=== PATIENT | female | born 1960 | race Caucasian/White ===

== ENCOUNTER 2017-07-29 11:29 | Emergency (ER) | payer OTHER ==
[~2017-07-29] VITALS: Ht 160 cm; Wt 79.5 kg
[2017-07-29 11:30] VITALS: BP 124/61; PULSE 90; RESP 18; TEMP 98.5; O2SAT 97
[2017-07-29] MEDS ORDERED: SODIUM CHLOR 0.9% 1000 ML INJ 1,000 ML IV ONE ×2 (11:53→13:45)
[2017-07-29] MEDS ORDERED: TRAZ300T2 PO (11:57)
[2017-07-29] MEDS ORDERED: OMEGCAP PO (11:57)
[2017-07-29] MEDS ORDERED: GLIP5TAB8 PO (11:57)
[2017-07-29] MEDS ORDERED: METF1000 PO (11:57)
[2017-07-29] MEDS ORDERED: ALLO300T2 PO (11:57)
[2017-07-29] MEDS ORDERED: ERYT250T13 PO (11:57)
[2017-07-29] MEDS ORDERED: LISI10TA3 PO (11:57)
[2017-07-29] MEDS ORDERED: OXYB10TA PO (11:57)
--- NOTE | 2017-07-29 12:01 | PD ---
HPI Chief Complaint: Dizziness Time Seen by Provider: 11:43 Travel History International Travel<30 days: No Contact w/Intl Traveler<30days: No Traveled to known affect area: No History of Present Illness HPI 56-year-old female with a history of diabetes with gastroparesis presents emergency department with lightheadedness and nausea associated with food for 2- 3 days. Says she has developed these symptoms over the last few days. In addition, she has had occasional cough and cold-like symptoms. Patient denies fevers, chest pain, shortness of breath, vomiting, back pain. Says she has chronic loose stools and has had diarrhea 5 times today, but says that she normally has loose stools and this may not be completely abnormal for her. Denies hematemesis, hematochezia, melena. Says her blood sugars have been running in the 120s which is normal for her. Her surgical history is significant significant for gastric sleeve 2 years ago, cholecystectomy, partial hysterectomy, and recent "hernia surgery" May 12, 2017. She has had a recent medication change to 2500mg metformin daily. Denies cardiac or pulmonary issues. She does not smoke. Her PCP is Dr. Cortez. [facility] Past Medical History Diabetes: Yes Patient Takes Glucophage: Yes Diminished Hearing: No Tetanus Vaccination: < 5 Years ?: Not Past Surgical History Cholecystectomy: Yes Hysterectomy: Yes Other Surgery: Yes (GASTRIC BYPASS, CARPAL TUNNEL, HERNIA) Social History Alcohol Use: No Tobacco Use: No Substance Use: No Allergies-Medications (Allergen,Severity, Reaction): Coded Allergies: aspirin (Verified Allergy, Unknown, 07/29/17) morphine (Verified Allergy, Unknown, Nausea/Vomiting, 07/29/17) Reported Meds & Prescriptions Reported Meds & Active Scripts Active Zofran (Ondansetron HCl) 4 Mg Tab 4 Mg PO Q8HR PRN 5 Days Reported Glipizide 5 Mg Tab 5 Mg PO DAILY Take 30 minutes before a meal Erythromycin Base 250 Mg Tab 250 Mg PO QID Lisinopril 10 Mg Tab 10 Mg PO DAILY Oxybutynin ER 24 HR (Oxybutynin Chloride) 10 Mg Tab 10 Mg PO DAILY [place]-3 Fish Oil/Vitamin (Fish Oil-Cholecalciferol) 1,000-1,000 Mg Cap 1 Cap PO DAILY Trazodone (Trazodone HCl) 300 Mg Tab 300 Mg PO HS Allopurinol 300 Mg Tab 300 Mg PO DAILY Metformin (Metformin HCl) 1,000 Mg Tab 2,500 Mg PO DAILY With a meal Review of Systems Except as stated in HPI: all other systems reviewed are Neg Physical Exam Narrative GENERAL: Well-developed, well-nourished resting comfortably in bed in no acute distress SKIN: Focused skin assessment warm/dry. Multiple scars of her abdomen HEAD: Atraumatic. Normocephalic. EYES: Pupils equal and round. No scleral icterus. No injection or drainage. EOMI ENT: No nasal bleeding or discharge. Mucous membranes pink and moist. NECK: Trachea midline. No JVD. No lymphadenopathy CARDIOVASCULAR: Regular rate and rhythm. No murmur appreciated. RESPIRATORY: No accessory muscle use. Clear to auscultation. Breath sounds equal bilaterally. GASTROINTESTINAL: Abdomen soft, non-tender, nondistended. Normoactive bowel sounds, tympany to percussion MUSCULOSKELETAL: No obvious deformities. No clubbing. No cyanosis. No edema. Homans sign negative bilaterally NEUROLOGICAL: Awake and alert. No obvious cranial nerve deficits. Motor grossly within normal limits. Normal speech. PSYCHIATRIC: Appropriate mood and affect; insight and judgment normal. Data Data Last Documented VS Vital Signs Date Time Temp Pulse Resp B/P (MAP) Pulse Ox O2 Delivery O2 Flow Rate FiO2 07/29/17 12:55 75 16 107/56 (73) 74 17 109/57 (74) 82 17 96/55 (69) 07/29/17 11:30 98.5 97 Room Air Orders Orders Electrocardiogram (07/29/17 11:53) Complete Blood Count With Diff (07/29/17 11:53) Comprehensive Metabolic Panel (07/29/17 11:53) Troponin I (07/29/17 11:53) Act Partial Throm Time (Ptt) (07/29/17 11:53) Prothrombin Time / Inr (Pt) (07/29/17 11:53) Urinalysis - C+S If Indicated (07/29/17 11:53) Blood Glucose (07/29/17 11:53) Ecg Monitoring (07/29/17 11:53) Iv Access Insert/Monitor (07/29/17 11:53) Oximetry (07/29/17 11:53) Sodium Chlor 0.9% 1000 Ml Inj (Ns 1000 M (07/29/17 11:53) Orthostatic Vital Signs (07/29/17 11:53) Sodium Chlor 0.9% 1000 Ml Inj (Ns 1000 M (07/29/17 13:45) Influenzae A/B Antigen (07/29/17 14:11) Ondansetron Inj (Zofran Inj) (07/29/17 14:15) Chest, Single Ap (07/29/17 ) Ed Discharge Order (07/29/17 15:48) Labs Laboratory Tests Test 07/29/17 12:20 07/29/17 13:42 White Blood Count 7.9 TH/MM3 Red Blood Count 4.53 MIL/MM3 Hemoglobin 14.1 GM/DL Hematocrit 41.0 % Mean Corpuscular Volume 90.4 FL Mean Corpuscular Hemoglobin 31.0 PG Mean Corpuscular Hemoglobin Concent 34.3 % Red Cell Distribution Width 13.5 % Platelet Count 198 TH/MM3 Mean Platelet Volume 8.0 FL Neutrophils (%) (Auto) 41.2 % Lymphocytes (%) (Auto) 49.3 % Monocytes (%) (Auto) 5.1 % Eosinophils (%) (Auto) 4.1 % Basophils (%) (Auto) 0.3 % Neutrophils # (Auto) 3.3 TH/MM3 Lymphocytes # (Auto) 3.9 TH/MM3 Monocytes # (Auto) 0.4 TH/MM3 Eosinophils # (Auto) 0.3 TH/MM3 Basophils # (Auto) 0.0 TH/MM3 CBC Comment DIFF FINAL Differential Comment Prothrombin Time 10.7 SEC Prothromb Time International Ratio 1.1 RATIO Activated Partial Thromboplast Time 25.4 SEC Blood Urea Nitrogen 11 MG/DL Creatinine 0.81 MG/DL Random Glucose 123 MG/DL Total Protein 7.9 GM/DL Albumin 4.2 GM/DL Calcium Level 9.5 MG/DL Alkaline Phosphatase 36 U/L Aspartate Amino Transf (AST/SGOT) 65 U/L Alanine Aminotransferase (ALT/SGPT) 118 U/L Total Bilirubin 0.4 MG/DL Sodium Level 138 MEQ/L Potassium Level 4.2 MEQ/L Chloride Level 104 MEQ/L Carbon Dioxide Level 26.3 MEQ/L Anion Gap 8 MEQ/L Estimat Glomerular Filtration Rate 73 ML/MIN Troponin I LESS THAN 0.02 NG/ML Urine Color LIGHT-YELLOW Urine Turbidity CLEAR Urine pH 7.0 Urine Specific [place] 1.008 Urine Protein NEG mg/dL Urine Glucose (UA) NEG mg/dL Urine Ketones NEG mg/dL Urine Occult Blood NEG Urine Nitrite NEG Urine Bilirubin NEG Urine Urobilinogen LESS THAN 2.0 MG/DL Urine Leukocyte Esterase MOD Urine RBC LESS THAN 1 /hpf Urine WBC 1 /hpf Urine Squamous Epithelial Cells 1 /hpf Urine Transitional Epithelial Cells <1 /hpf Microscopic Urinalysis Comment CULT NOT INDICATED MDM Medical Decision Making Medical Screen Exam Complete: Yes Emergency Medical Condition: Yes Differential Diagnosis Electrolyte abnormality, dehydration, medication noncompliance, diabetic gastroparesis Narrative Course 56-year-old female with a history of diabetes with gastroparesis presents emergency department complaining of dizziness, nausea, vomiting and diarrhea for 2-3 days. Patient states that her diarrhea is chronic and she has gone about 5 times a day. States that she recently changed her metformin to 2500 mg a day which is up 500 mg from her usual dose. States that her nausea is associated with food. In addition, states that she has lightheadedness with standing up. She denies head trauma, loss of consciousness, syncope or presyncopal episodes. Her vital signs are stable today. Orthostatics mildly positive. Physical exam findings essentially unremarkable. Zofran administered for nausea. EKG demonstrates sinus rhythm with first-degree heart block with DE interval 0.229. CBC & BMP Diagram 07/29/17 12:20 Total Protein 7.9, Albumin 4.2, Calcium Level 9.5, Alkaline Phosphatase 36 L, Aspartate Amino Transf (AST/SGOT) 65 H, Alanine Aminotransferase (ALT/SGPT) 118 H, Total Bilirubin 0.4 After discussion of the liver enzymes, patient states that she does have a "fatty liver". She is unsure of her baseline numbers. Influenza negative. UA unremarkable. Cardiac enzymes negative Advised patient to follow-up with primary care physician for further evaluation. Advised to follow-up with her elevated liver enzymes. History and physical follow pattern of orthostasis or dehydration. I advised her to follow- up with primary care physician for discussion of metformin. Patient does have gastroparesis and takes erythromycin. It is likely that she has had more than normal episodes of diarrhea that has caused some dehydration. She states understanding and will comply. Diagnosis Primary Impression: Nausea & vomiting Qualified Codes: R11.2 - Nausea with vomiting, unspecified Additional Impressions: Dehydration Elevated liver enzymes Referrals: Primary Care Physician Additional Instructions: Take all medications as prescribed. Consider changing dose of metformin as you may have a slight intolerance to this medication at 2500 mg. Follow up with your primary care physician this week. Use caution with standing to avoid dizziness. Scripts Ondansetron (Zofran) 4 Mg Tab 4 MG PO Q8HR Y for NAUSEA OR VOMITING for 5 Days, TAB 0 Refills Prov: Tori Luna 07/29/17 Disposition: 01 DISCHARGE HOME Condition: Stable Tori Luna Jul 29, 2017 12:01
[2017-07-29 12:51] LABS: AUTOMATED NEUTROPHIL # 3.3 TH/MM3 (1.8-7.7); BASOPHIL % 0.3 % (0.0-2.0); EOSINOPHIL # 0.3 TH/MM3 (0-0.4); EOSINOPHIL % 4.1 % (0.0-4.0); HEMOGLOBIN 14.1 GM/DL (11.6-15.3); LYMPH % 49.3 % (9.0-44.0); LYMPHOCYTE # 3.9 TH/MM3 (1.0-4.8); MEAN CELL VOLUME 90.4 FL (80.0-100.0); MEAN CORPUSCULAR HGB CONC 34.3 % (32.0-36.0); MONO % 5.1 % (0.0-8.0); MONOCYTE # 0.4 TH/MM3 (0-0.9); NEUT % 41.2 % (16.0-70.0); PLATELET COUNT 198 TH/MM3 (150-450); RED BLOOD COUNT 4.53 MIL/MM3 (4.00-5.30); RED CELL DISTRIBUTION WIDTH 13.5 % (11.6-17.2); WHITE BLOOD COUNT 7.9 TH/MM3 (4.0-11.0)
[2017-07-29 12:55] VITALS: BP_SYST 107; BP_SYST 109; BP_SYST 96; BP_DIAS 55; BP_DIAS 56; BP_DIAS 57; RESP 16; RESP 17
[2017-07-29 13:03] LABS: INTERNATIONAL NORMALIZED RATIO 1.1 RATIO; PROTHROMBIN TIME - PATIENT 10.7 SEC (9.8-11.6)
[2017-07-29 13:16] LABS: ALBUMIN 4.2 GM/DL (3.4-5.0); ALT (GPT) 118 U/L (10-53); AST (GOT) 65 U/L (15-37); BICARBONATE 26.3 MEQ/L (21.0-32.0); BLOOD UREA NITROGEN 11 MG/DL (7-18); CALCIUM 9.5 MG/DL (8.5-10.1); CHLORIDE 104 MEQ/L (98-107); CREATININE 0.81 MG/DL (0.50-1.00); GLOMERULAR FILTRATION RATE 73 ML/MIN (>89); GLUCOSE,RANDOM 123 MG/DL (74-106); SODIUM (NA) 138 MEQ/L (136-145)
[2017-07-29 13:20] LABS: ALKALINE PHOSPHATASE 36 U/L (45-117); TOTAL BILIRUBIN ADULT 0.4 MG/DL (0.2-1.0); TOTAL PROTEIN 7.9 GM/DL (6.4-8.2); TROPONIN I LESS THAN 0.02 NG/ML (0.02-0.05)
[2017-07-29 14:11] LABS: BILIRUBIN, URINE NEG (NEG); BLOOD, URINE NEG (NEG); GLUCOSE,URINE NEG (NEG); KETONE, URINE NEG (NEG); NITRITE,URINE NEG (NEG); SQUAMOUS EPITHELIAL CELL URINE 1 /hpf (0-5); TRANSITIONAL EPI CELLS, URINE <1 /hpf; URINE COLOR LIGHT-YELLOW (YELLW/STRAW); URINE LEUKOCYTE ESTERASE MOD (NEG)
[2017-07-29] MEDS ORDERED: ONDANSETRON HCL 4 MG/2 ML VIAL IV PUSH ONE (14:15)
--- NOTE | 2017-07-29 15:03 | RADRPT ---
EXAM DATE/TIME: 07/29/2017 14:25 [facility] COMPARISON: No previous studies available for comparison. INDICATIONS : Dizziness for 3 days. MEDICAL HISTORY : Diabetes mellitus type II. SURGICAL HISTORY : None. ENCOUNTER: Initial ACUITY: 3 days PAIN SCORE: 0/10 LOCATION: Bilateral chest FINDINGS: A single view of the chest demonstrates the lungs to be symmetrically aerated without evidence of mas s, infiltrate or effusion. The cardiomediastinal contours are unremarkable. Osseous structures are intact. CONCLUSION: The lungs are clear. Roe Robles MD on July 29, 2017 at 15:02 Board Certified Radiologist. This report was verified electronically.
[2017-07-29] MEDS ORDERED: ZOFR4TAB PO (15:46)
--- NOTE | 2017-07-30 16:04 | EKG ---
Date Performed: 07/29/2017 Time Performed: 11:46:28 PTAGE: 56 years EKG: Sinus rhythm WITH FIRST DEGREE AV BLOCK POSSIBLE LEFT ATRIAL ENLARGEMENT LOW QRS VOLTAGE IN PRECORDIAL LEADS MODE RATE ST DEPRESSION ABNORMAL ECG NO PREVIOUS TRACING DOCTOR: Alexander Driscoll Interpretating Date/Time 07/30/2017 16:03:14
== END 2017-07-29 16:19 | disposition home or self-care (01) ==
LOC: NEPC 11:29
DX: E11.43 Type 2 diabetes mellitus with diabetic autonomic (poly)neuropathy (principal); K31.84 Gastroparesis; E86.0 Dehydration; R74.8 Abnormal levels of other serum enzymes; R94.31 Abnormal electrocardiogram [ECG] [EKG]; Z79.84 Long term (current) use of oral hypoglycemic drugs
CPT/HCPCS: 71045; 80053; 81001; 84484; 85025; 85610; 85730; 87804; 93005; 96361; 96374; 99285; J2405; J7030

== ENCOUNTER 2017-10-08 19:28 | Emergency (ER) | payer OTHER, MEDICAID ==
[~2017-10-08] VITALS: Ht 162.6 cm; Wt 82.0 kg
[~2017-10-08 19:28] MED LIST: ALLO300T2 PO; ERYT250T13 PO; GLIP5TAB8 PO; LISI10TA3 PO; METF1000 PO; OMEGCAP PO; OXYB10TA PO; TRAZ300T2 PO; ZOFR4TAB PO
[2017-10-08 19:49] VITALS: BP 134/65; PULSE 73; RESP 18; TEMP 98; O2SAT 96
--- NOTE | 2017-10-08 20:12 | PD ---
HPI Chief Complaint: Pain: Acute or Chronic Time Seen by Provider: 20:00 Travel History International Travel<30 days: No Contact w/Intl Traveler<30days: No Traveled to known affect area: No History of Present Illness HPI Patient is a 57-year-old female who comes in complaining of right hip pain. She says it has been going on for the past week. She has not taken anything for pain. She does not recall any injury. She says that movement makes the pain worse. She says the pain is mostly in her hip and she has some numbness in her leg. She says she feels like it shoots down her right leg. She says it has been getting worse over the past few days. Severity is mild to moderate. PFSH Past Medical History Diabetes: Yes Patient Takes Glucophage: No Diminished Hearing: No Immunizations Current: Yes ?: Not Past Surgical History Cholecystectomy: Yes Hysterectomy: Yes Other Surgery: Yes (GASTRIC BYPASS, CARPAL TUNNEL, HERNIA) Social History Alcohol Use: No Tobacco Use: No Substance Use: No Allergies-Medications (Allergen,Severity, Reaction): Coded Allergies: aspirin (Verified Allergy, Unknown, 07/29/17) morphine (Verified Allergy, Unknown, Nausea/Vomiting, 07/29/17) Reported Meds & Prescriptions Reported Meds & Active Scripts Active Zofran (Ondansetron HCl) 4 Mg Tab 4 Mg PO Q8HR PRN 5 Days Reported Glipizide 5 Mg Tab 5 Mg PO DAILY Take 30 minutes before a meal Erythromycin Base 250 Mg Tab 250 Mg PO QID Lisinopril 10 Mg Tab 10 Mg PO DAILY Oxybutynin ER 24 HR (Oxybutynin Chloride) 10 Mg Tab 10 Mg PO DAILY [place]-3 Fish Oil/Vitamin (Fish Oil-Cholecalciferol) 1,000-1,000 Mg Cap 1 Cap PO DAILY Trazodone (Trazodone HCl) 300 Mg Tab 300 Mg PO HS Allopurinol 300 Mg Tab 300 Mg PO DAILY Metformin (Metformin HCl) 1,000 Mg Tab 2,500 Mg PO DAILY With a meal Review of Systems General / Constitutional: No: Fever, Chills HENT: No: Headaches, Lightheadedness Cardiovascular: No: Chest Pain or Discomfort Respiratory: No: Shortness of Breath Gastrointestinal: No: Nausea, Vomiting Genitourinary: No: Dysuria, Flank Pain Musculoskeletal: Positive: Pain, No: Edema Skin: No Rash, No Change in Pigmentation Neurologic: Positive: Paresthesia, No: Weakness, Dizziness Physical Exam Narrative GENERAL: Awake alert, in no acute distress. SKIN: Focused skin assessment warm/dry. No wounds or signs of infection. HEAD: Atraumatic. Normocephalic. EYES: Pupils equal and round. No scleral icterus. ENT: Mucous membranes pink and moist. NECK: Trachea midline. No JVD. CARDIOVASCULAR: Regular rate and rhythm. No murmur appreciated. RESPIRATORY: No accessory muscle use. Clear to auscultation. Breath sounds equal bilaterally. GASTROINTESTINAL: Abdomen soft, non-tender, nondistended. No CVA tenderness. MUSCULOSKELETAL: No obvious deformities. No clubbing. No cyanosis. No edema. Pain with movement in the right side. Mild tenderness to the right sacroiliac area. NEUROLOGICAL: Awake and alert. No obvious cranial nerve deficits. Motor grossly within normal limits. Normal speech. No saddle anesthesia. PSYCHIATRIC: Appropriate mood and affect; insight and judgment normal. Data Data Last Documented VS Vital Signs Date Time Temp Pulse Resp B/P (MAP) Pulse Ox O2 Delivery O2 Flow Rate FiO2 10/08/17 19:49 98.0 73 18 134/65 (88) 96 Orders Orders Hip, Uni(4+Vws) W Ap Pelvis (10/08/17 ) Ketorolac Inj (Toradol Inj) (10/08/17 20:15) Cyclobenzaprine (Flexeril) (10/08/17 20:15) MDM Medical Decision Making Medical Screen Exam Complete: Yes Emergency Medical Condition: Yes Medical Record Reviewed: Yes Differential Diagnosis Hip strain versus sciatica versus fracture Narrative Course Patient is a 57-year-old female comes in complaining of right hip pain. There is tenderness to the right sacroiliac area, pain with movement of her right hip. No saddle anesthesia. X-ray of the hip and pelvis performed show no acute abnormalities. Given Toradol and Flexeril with resolution of her symptoms. She is advised to take ibuprofen as needed at home. Given a prescription for Flexeril. Advised follow-up with her doctor. Advised return to the ED as needed for any worsening symptoms. Diagnosis Primary Impression: Hip pain Qualified Codes: M25.551 - Pain in right hip Additional Impression: Sciatica Qualified Codes: M54.31 - Sciatica, right side Patient Instructions: General Instructions, Lower Back Exercises (ED), Sciatica (ED) Additional Instructions: Take ibuprofen as needed for pain. You can also take Flexeril to help with the pain. Follow-up with your doctor. Return to the ED as needed for any worsening symptoms. Scripts Cyclobenzaprine (Flexeril) 10 Mg Tab 10 MG PO TID for Muscle Spasm, #15 TAB 0 Refills Prov: Celia Del Rosario MD 10/08/17 Disposition: 01 DISCHARGE HOME Condition: Stable Celia Del Rosario MD October 08, 2017 20:12
[2017-10-08] MEDS ORDERED: KETOROLAC TROMETHAMINE 60 MG/2 ML (IM) VIAL IM ONE (20:15)
[2017-10-08] MEDS ORDERED: CYCLOBENZAPRINE HCL 10 MG TAB PO ONE (20:15)
--- NOTE | 2017-10-08 20:35 | RADRPT ---
EXAM DATE/TIME: 10/08/2017 20:20 [facility] COMPARISON: No previous studies available for comparison. INDICATIONS : Patient complains of right hip pain. No known injury. MEDICAL HISTORY : None. SURGICAL HISTORY : None. ENCOUNTER: Initial ACUITY: 1 week PAIN SCORE: 10/10 LOCATION: Right Hip FINDINGS: Examination of the right hip was performed with AP pelvis. The primary and secondary trabecular jass carlos of the femoral neck is intact. The hip joint is of normal width without significant sclerosis or bony hypertrophy. The acetabulum is grossly intact. CONCLUSION: No acute fracture. Modesto Hall MD on October 08, 2017 at 20:33 Board Certified Radiologist. This report was verified electronically.
[2017-10-08] MEDS ORDERED: CYCL10TA PO (21:26)
== END 2017-10-08 21:54 | disposition home or self-care (01) ==
LOC: NEPE 19:28
DX: M25.551 Pain in right hip (principal); M54.31 Sciatica, right side; E11.9 Type 2 diabetes mellitus without complications; Z79.84 Long term (current) use of oral hypoglycemic drugs
CPT/HCPCS: 73503; 96372; 99283; J1885

== ENCOUNTER 2017-10-25 20:06 | Emergency (ER) | payer OTHER, MEDICAID ==
[~2017-10-25 20:06] MED LIST changes: +CYCL10TA PO
[2017-10-25 20:16] VITALS: BP 143/63; PULSE 97; RESP 18; TEMP 98.3; O2SAT 98
[2017-10-25] MEDS ORDERED: TIZA4CAP3 PO (20:38)
[2017-10-25] MEDS ORDERED: LIDO1ADH4 TOPICAL (20:38)
--- NOTE | 2017-10-25 20:38 | PD ---
HPI Chief Complaint: Pain: Acute or Chronic Time Seen by Provider: 20:20 Travel History International Travel<30 days: No Contact w/Intl Traveler<30days: No Traveled to known affect area: No History of Present Illness HPI Patient is a 57-year-old female presenting to the emergency department for evaluation of sciatica. Patient states she was in the emergency department a few weeks ago, the pain feels worse than it did before. Patient has not been taking any medications to alleviate her symptoms. She has not followed up with her primary doctor as suggested. She states the pain runs down her right leg. She denies any bladder or bowel incontinence, no saddle paresthesia, no weakness or numbness. Patient cannot take NSAIDs due to gastric sleeve surgery. Patient is also diabetic. She reports the pain is a 7 out of 10, shooting and aching, worse with certain positions. She states it takes her a minute to be able to walk after she stands up because it grabs. PFSH Past Medical History Diabetes: Yes Medical other: Yes (SCIATICA) Immunizations Current: Yes Past Surgical History Cholecystectomy: Yes Hysterectomy: Yes Other Surgery: Yes (GASTRIC BYPASS, CARPAL TUNNEL, HERNIA) Social History Alcohol Use: No Tobacco Use: No Substance Use: No Allergies-Medications (Allergen,Severity, Reaction): Coded Allergies: aspirin (Verified Allergy, Unknown, 10/25/17) morphine (Verified Allergy, Unknown, Nausea/Vomiting, 10/25/17) Reported Meds & Prescriptions Reported Meds & Active Scripts Active Tizanidine (Tizanidine HCl) 4 Mg Cap 4 Mg PO TID 10 Days Lidoderm (Lidocaine) 5 % Adh..patch 1 Patch TOPICAL DAILY PRN 10 Days Reported Losartan (Losartan Potassium) 25 Mg Tab 10 Mg PO DAILY Glipizide 5 Mg Tab 5 Mg PO DAILY Take 30 minutes before a meal Oxybutynin ER 24 HR (Oxybutynin Chloride) 10 Mg Tab 10 Mg PO DAILY [place]-3 Fish Oil/Vitamin (Fish Oil-Cholecalciferol) 1,000-1,000 Mg Cap 1 Cap PO DAILY Trazodone (Trazodone HCl) 300 Mg Tab 300 Mg PO HS Allopurinol 300 Mg Tab 300 Mg PO DAILY Metformin (Metformin HCl) 1,000 Mg Tab 2,500 Mg PO DAILY With a meal Review of Systems Except as stated in HPI: all other systems reviewed are Neg Musculoskeletal: Positive: Myalgias, Arthralgias, Pain Physical Exam Narrative GENERAL: Overweight, well-developed, alert female. Presenting in no acute distress. SKIN: Warm and dry. HEAD: Atraumatic. Normocephalic. EYES: Pupils equal and round. No scleral icterus. No injection or drainage. ENT: No nasal bleeding or discharge. Mucous membranes pink and moist. NECK: Trachea midline. No JVD. CARDIOVASCULAR: Regular rate and rhythm. RESPIRATORY: No accessory muscle use. Clear to auscultation. Breath sounds equal bilaterally. GASTROINTESTINAL: Abdomen soft, non-tender, nondistended. Hepatic and splenic margins not palpable. MUSCULOSKELETAL: Extremities without clubbing, cyanosis, or edema. No obvious deformities. Mild tenderness to palpation over right SI joint. Gait is steady. NEUROLOGICAL: Awake and alert. No obvious cranial nerve deficits. Motor grossly within normal limits. Five out of 5 muscle strength in the arms and legs. Normal speech. PSYCHIATRIC: Appropriate mood and affect; insight and judgment normal. Data Data Last Documented VS Vital Signs Date Time Temp Pulse Resp B/P (MAP) Pulse Ox O2 Delivery O2 Flow Rate FiO2 10/25/17 21:09 20 100 10/25/17 20:16 98.3 97 143/63 (89) Orders Orders Ketorolac Inj (Toradol Inj) (10/25/17 20:45) Lidocaine 5% Patch.12 Hr (Lidoderm 5% Pa (10/25/17 20:45) Orphenadrine Inj (Norflex Inj) (10/25/17 20:45) Ed Discharge Order (10/25/17 21:26) MDM Medical Decision Making Medical Screen Exam Complete: Yes Emergency Medical Condition: Yes Medical Record Reviewed: Yes Interpretation(s) Vital Signs Date Time Temp Pulse Resp B/P (MAP) Pulse Ox O2 Delivery O2 Flow Rate FiO2 10/25/17 20:16 98.3 97 18 143/63 (89) 98 Differential Diagnosis Sciatica versus radiculopathy versus spasm versus strain versus other Narrative Course Patient is a well-appearing 57-year-old female presenting to the emergency department due to right sciatica. Patient was seen and evaluated on 10/08/17. An x-ray of the hip was performed at that time which showed no acute abnormalities. Patient states medication she was given at that time helped. Patient was given Toradol. She will be given this again. Patient unfortunately cannot take NSAIDs due to previous gastric sleeve surgery. Patient will also be given Norflex injection at this time and will have a Lidoderm patch placed over the area of tenderness. Patient was advised that she should follow-up with her primary doctor, she can obtain from them a referral for physical therapy. She was encouraged to take acetaminophen as needed and as directed for pain. She was encouraged at these medications work best if taken consistently. She is only taken it once over the last several weeks. She was encouraged to apply warm heat to affected area and continue gentle range of motion exercises. She verbalized understanding of these instructions. Patient is stable for discharge. Diagnosis Primary Impression: Sciatica Qualified Codes: M54.31 - Sciatica, right side Referrals: Primary Care Physician 1 week Patient Instructions: General Instructions, Sciatica (ED) Additional Instructions: Follow-up with your primary doctor to discuss alternative therapies such as physical therapy to help alleviate sciatica Continue gentle range of motion exercises, avoid bed rest, apply warm heat to affected area Return to emergency department for any new or worsening symptoms Take acetaminophen as needed and as directed for pain Apply Lidoderm patch to the affected area once a day, leave on for 12 hours, remove for 12 hours Med/Other Pt SpecificInfo: Prescription(s) given Scripts Tizanidine (Tizanidine) 4 Mg Cap 4 MG PO TID for Muscle Spasm for 10 Days, CAP 0 Refills Prov: Rashida Ramirez 10/25/17 Lidocaine (Lidoderm) 5 % Adh..patch 1 PATCH TOPICAL DAILY Y for PAIN SCALE 1 TO 10 for 10 Days Prov: Rashida Ramirez 10/25/17 Disposition: 01 DISCHARGE HOME Condition: Stable Rashida Ramirez October 25, 2017 20:38
[2017-10-25] MEDS ORDERED: LIDOCAINE HCL 5% PATCH T-DERMAL ONE (20:45)
[2017-10-25] MEDS ORDERED: ORPHENADRINE INJ 60 MG/2 ML AMP IM ONE (20:45)
[2017-10-25] MEDS ORDERED: KETOROLAC TROMETHAMINE 60 MG/2 ML (IM) VIAL IM ONE (20:45)
[2017-10-25] MEDS ORDERED: LOSA25TA PO (20:46)
== END 2017-10-25 21:11 | disposition home or self-care (01) ==
LOC: NEPD 20:06
DX: E11.9 Type 2 diabetes mellitus without complications (principal)
CPT/HCPCS: 96372; 99283; J1885; J2360